=== PATIENT | female | born 1990 | race Caucasian/White ===

== ENCOUNTER 2017-03-23 01:54 | Emergency (ER) | payer OTHER ==
--- NOTE | 2017-03-23 01:58 | EDPHY ---
H & P HPI/ROS: Chief Complaint: Alcohol intoxication, vomiting HPI: 27-year-old female who was found at a work related house constitution party intoxicated. Patient passed out after vomiting. Is unable to ambulate on their own. Patient brought in by EMS for further evaluation. No obvious signs of trauma per EMS. Remainder of history is unobtainable secondary to the patient' s intoxication. ROS: 10 point Review of Systems is negative except as noted in the HPI. PMH: None Social History: Positive for alcohol Family History: non-contributory Physical Exam: Gen: Awake, alert, smells of alcohol and emesis HEENT: Atraumatic Nose: no epistaxis or deformity Eyes: PERRLA, EOMI Mouth: Moist mucosa Neck: Supple, no step-offs or deformity Chest: Atraumatic, lungs clear to auscultation Heart: S1, S2 normal, no murmur Abd: Soft, non-tender, no guarding Back: Atraumatic Ext: no edema, atraumatic Skin: no rash Neuro: Sensation grossly intact, Strength 5/5 in bilateral upper and lower extremities Constitutional: Initial Vital Signs Temperature (C) 36.6 C 03/23/17 01:57 Heart Rate 74 03/23/17 01:57 Respiratory Rate 16 03/23/17 01:57 Blood Pressure 98/65 L 03/23/17 01:57 O2 Sat (%) 96 03/23/17 01:57 O2 Delivery Mode Room Air Allergies/Adverse Reactions: No Known Allergies Allergy (Unverified 03/23/17 01:57) Home Medications: Medication Instructions Recorded NK [No Known Home Meds] 03/23/17 Medical Decision Making ED Course/Re-evaluation: Patient is now awake and appropriate. Ambulating unassisted to the bathroom. No current complaints. Medically cleared for discharge to home. 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 - Data Points Medications Given: Discontinued Medications Sodium Chloride (Ns) 1,000 mls @ 0 mls/hr IV ONCE ONE PRN Reason: Wide Open Stop: 03/23/17 04:56 Last Admin: 03/23/17 05:04 Dose: 1,000 mls Departure - Departure Disposition: Home, Routine, Self-Care Clinical Impression: Alcoholic intoxication Condition: Good Instructions: Alcohol Intoxication (ED) Referrals: Ahsan Kingsley MD [[facility] [place] [facility] [place]] - As per Instructions
[2017-03-23 01:59] VITALS: RESP 16
[2017-03-23] MEDS ORDERED: NS 1,000 ML IV ONE (04:55)
[2017-03-23 07:24] VITALS: BP 116/72; PULSE 75; TEMP 98.1; O2SAT 97
== END 2017-03-23 07:22 | disposition home or self-care (01) ==
DX: F10.129 Alcohol abuse with intoxication, unspecified (principal); R11.10 Vomiting, unspecified

== ENCOUNTER → 2017-12-28 | Outpatient (CLI) | payer OTHER | LOC: BMCIMAGING 14:16 | PROVIDERS: ATTEND Family Medicine | DX: S52.532D Colles' fracture of left radius, subsequent encounter for closed fracture with routine healing (principal) ==